=== PATIENT | female | born 1975 | race Two or more races ===

== ENCOUNTER 2017-03-27 14:24 | Emergency (ER) | payer MEDICAID, OTHER | END 2017-03-27 17:10 | disposition home or self-care (01) | LOC: E/R 17:10 | DX: H60.501 Unspecified acute noninfective otitis externa, right ear (principal); N30.90 Cystitis, unspecified without hematuria; I10 Essential (primary) hypertension | CPT/HCPCS: 99283; Z7502 ==

== ENCOUNTER 2018-07-29 21:12 | Emergency (ER) | payer OTHER, MEDICAID ==
[2018-07-30] MEDS: HYDROCODONE/APAP (5/325) TAB PO (00:57)
[2018-07-30] MEDS: KETOROLAC 30 MG INJ IM (00:58)
== END 2018-07-30 02:46 | disposition home or self-care (01) ==
LOC: FTE 21:12
DX: M79.604 Pain in right leg (principal); E11.9 Type 2 diabetes mellitus without complications; I10 Essential (primary) hypertension
CPT/HCPCS: 81025; 93970; 96372; 99285-25

== ENCOUNTER 2018-11-25 19:31 | Emergency (ER) | payer OTHER ==
[2018-11-25] MEDS: KETOROLAC 30 MG INJ IV (20:58)
== END 2018-11-25 22:21 | disposition home or self-care (01) ==
LOC: E/R 19:31
DX: R05 Cough (principal); R10.13 Epigastric pain; E11.9 Type 2 diabetes mellitus without complications; I10 Essential (primary) hypertension; Z79.84 Long term (current) use of oral hypoglycemic drugs; Z79.82 Long term (current) use of aspirin
CPT/HCPCS: 36415; 71045; 80053; 81001; 83690; 85025; 96374; 99284-25